=== PATIENT | female | born 1935 | race Caucasian/White ===

== ENCOUNTER 2022-08-13 21:10 | Inpatient (IN) | payer MEDICARE, MEDICAID ==
[2022-08-12] MEDS: MAGNESIUM SULFATE/D5W 100 ML IV SCH (23:30)
[~2022-08-13] VITALS: Ht 162.6 cm; Wt 63.5 kg
[2022-08-13] MEDS: MAGNESIUM SULFATE/D5W 100 ML IV SCH
[2022-08-13] MEDS ORDERED: ALBUTEROL SULFATE 2.5 MG/3 ML NEBU NEB ONE ×3 (21:30)
[2022-08-13] MEDS ORDERED: IPRATROPIUM BROMIDE 0.5 MG/2.5 ML NEBU NEB ONE ×3 (21:30)
[2022-08-13] MEDS ORDERED: methylPREDNISolone SOD SUCC 125 MG/2 ML VIAL IV ONE (21:30)
[2022-08-13] MEDS ORDERED: ALBUTEROL SULFATE 2.5 MG/3 ML NEBU ONE ×3 (21:34→22:26)
[2022-08-13] MEDS ORDERED: IPRATROPIUM BROMIDE 0.5 MG/2.5 ML NEBU ONE ×3 (21:34→22:26)
[2022-08-13] MEDS ORDERED: AZITHROMYCIN IV 500 MG in IV DEXTROSE 5% 250 ML IV ONE (21:45)
[2022-08-13] MEDS ORDERED: VANCOMYCIN 1G/D5W 200 ML PIGGYBACK IV ONE (21:45)
[2022-08-13] MEDS ORDERED: PIPERACILLIN SODIUM/TAZOBACTAM 3.375 G in IV DEXTROSE 5% 50 ML IV ONE (21:45)
[2022-08-13 22:08] LABS: HEMATOCRIT 38.9 % (31.2-41.9); MEAN CORPUSCULAR HEMOGLOBIN 32.3 uug (24.7-32.8); MEAN CORPUSCULAR VOLUME 99.1 fL (75.5-95.3); PLATELET COUNT (AUTO) 232 K/uL (179-408)
[2022-08-13 22:14] LABS: CARBON DIOXIDE 19 mmol/L (21-32); CHLORIDE 111 mmol/L (98-107); CREATININE 1.8 mg/dL (0.6-1.3); GLUCOSE 105 mg/dL (74-106); POTASSIUM 3.6 mmol/L (3.5-5.1); UREA NITROGEN, BLOOD 65 mg/dL (7-18)
[2022-08-13 22:22] LABS: ALANINE AMINOTRANSFERASE 15 U/L (14-59); ALKALINE PHOSPHATASE 167 U/L (50-136); ASPARTATE AMINOTRANSFERASE 21 U/L (15-37); BILIRUBIN,DIRECT 0.1 mg/dL (0.0-0.2); BILIRUBIN,TOTAL 0.2 mg/dL (0.2-1.0); TOTAL PROTEIN, SERUM 7.3 g/dL (6.4-8.2)
[2022-08-13 22:28] LABS: THYROID STIMULATING HORMONE 1.884 mIU/mL (0.358-3.740)
[2022-08-13] MEDS ORDERED: PIPERACILLIN/TAZOBACTAM/D5W 50 ML IV ONE (22:28)
[2022-08-13] MEDS ORDERED: VANCOMYCIN IV 200 ML ONE (22:29)
[2022-08-13] MEDS ORDERED: MAGNESIUM SULFATE/D5W 200 ML ONE (22:30)
[2022-08-13] MEDS ORDERED: AZITHROMYCIN 500MG/ D5W 250ML IVPB **ER PYXIS ONLY IV ONE (22:30)
--- NOTE | 2022-08-13 23:00 | NUR ---
After 3x breathing tx, Patient placed on HFNC. 40LPM 100% FIO2. Verbal order by ER MD.
[2022-08-13] MEDS ORDERED: methylPREDNISolone SOD SUCC 125 MG/2 ML VIAL ONE (23:56)
[2022-08-14] MEDS ORDERED: MULT-1045 PO (00:41)
[2022-08-14] MEDS ORDERED: MELA5TAB21 PO (00:41)
[2022-08-14] MEDS ORDERED: CLOP75TA33 PO (00:41)
[2022-08-14] MEDS ORDERED: VIT1CAPS9 PO (00:41)
[2022-08-14] MEDS ORDERED: CALC600T35 PO (00:41)
[2022-08-14] MEDS ORDERED: CRAN500T3 PO (00:41)
[2022-08-14] MEDS ORDERED: FOLI1TAB94 PO (00:41)
[2022-08-14] MEDS ORDERED: FERR236T3 PO (00:41)
[2022-08-14] MEDS ORDERED: MAGN64TA9 PO (00:41)
[2022-08-14] MEDS ORDERED: LEVO175T7 PO (00:41)
[2022-08-14] MEDS ORDERED: ONDANSETRON 4 MG/2 ML VIAL IV PRN (01:15)
[2022-08-14] MEDS ORDERED: ACETAMINOPHEN 325 MG TABLET PO PRN (01:15)
[2022-08-14] MEDS ORDERED: REMEDY ESSENTIAL ZINC PASTE 113 GM TP PRN (01:15)
[2022-08-14 02:34] LABS: ABG BASE EXCESS -8.4 mmol/L; ABG HCO3 14.9 mmol/L; ABG PCO2 25.2 mmHg (35.0-45.0); ABG PH 7.391 (7.350-7.450); ABG PO2 97.8 mmHg (75.0-100.0); ABG SITE LEFT RADIAL; COHb 1.3 % (0.5-1.5); MetHb 0.3 % (0.0-1.5); O2Hb 95.8 % (94.0-97.0); VENT MODE HF - Aquinox
--- NOTE | 2022-08-14 02:48 | NUR ---
Called Timmy Downs and read back ABG results. Was told to tell respiratory to lower Fi02 to 60%.
--- NOTE | 2022-08-14 05:50 | NUR ---
Called third floor and recieved room number 301-A for patient.
[2022-08-14] MEDS ORDERED: CEFEPIME HCL 1 G in IV DEXTROSE 5% 50 ML IV SCH (06:00)
[2022-08-14 06:04] LABS: ALANINE AMINOTRANSFERASE 13 U/L (14-59); ALKALINE PHOSPHATASE 160 U/L (50-136); ASPARTATE AMINOTRANSFERASE 19 U/L (15-37); BILIRUBIN,TOTAL 0.2 mg/dL (0.2-1.0); CARBON DIOXIDE 18 mmol/L (21-32); CHLORIDE 111 mmol/L (98-107); CREATININE 2.1 mg/dL (0.6-1.3); GLUCOSE 148 mg/dL (74-106); MAGNESIUM 3.2 mg/dL (1.8-2.4); PHOSPHOROUS 3.2 mg/dL (2.5-4.9); UREA NITROGEN, BLOOD 70 mg/dL (7-18)
[2022-08-14 06:15] LABS: HEMATOCRIT 35.4 % (31.2-41.9); MEAN CORPUSCULAR HEMOGLOBIN 32.8 uug (24.7-32.8); MEAN CORPUSCULAR VOLUME 98.7 fL (75.5-95.3); PLATELET COUNT (AUTO) 209 K/uL (179-408)
[2022-08-14] MEDS ORDERED: CEFEPIME HCL 1 G VIAL ONE (06:48)
[2022-08-14] MEDS: PANTOPRAZOLE SODIUM 40 MG TABLET.DR PO SCH (07:00)
--- NOTE | 2022-08-14 07:00 | NUR ---
Zachary plummer in ED - 08/14/22 at 0722 by TERRA Endorsed by RAYMOND dutta at this time
--- NOTE | 2022-08-14 07:12 | NUR ---
Gave report to Mychal ANDRADE.
--- NOTE | 2022-08-14 07:30 | NUR ---
Contacted Pt's daughter. Pt's daughter stated she has no known allergies. Safety measures in place. Will continue to monitor.
[2022-08-14] MEDS ORDERED: ALBUTEROL SULFATE 2.5 MG/3 ML NEBU ONE (08:51)
[2022-08-14] MEDS ORDERED: IPRATROPIUM BROMIDE 0.5 MG/2.5 ML NEBU ONE (08:51)
[2022-08-14] MEDS: HEPARIN SODIUM,PORCINE 5,000 UNITS/ML VIAL SQ SCH ×2 (09:00→20:31)
[2022-08-14] MEDS: methylPREDNISolone SOD SUCC 40 MG/ML VIAL IV SCH ×2 (09:00→17:15)
--- NOTE | 2022-08-14 09:00 | NUR ---
Dr. Hill informed me that Pt doesn't need to be on High Flow NC anymore. Informed me to put Pt on 6L NC. Safety measures in place. Will continue to monitor.
--- NOTE | 2022-08-14 09:42 | NUR ---
Contacted Dr. Garcia. stated to put the Pt in "telemetry" instead of NEFTALI. Safety measures in place. Will continue to monitor.
--- NOTE | 2022-08-14 10:16 | NUR ---
Gave Report to Hal. Safety measures in place. Will continue to monitor.
--- NOTE | 2022-08-14 11:15 | NUR ---
Pt admitted to 3rd Floor Rm 301A in stable condition. All belongings with Pt.
--- NOTE | 2022-08-14 11:15 | NUR ---
Received this admission from ER this 87 yo female with the diagnosis of Respiratory Failure; HCAP. Transferred to bed comfortably. Routine admission care rendered. Placed on Tele SR. O2 titrated to 5L/NC with O2 sat of 98%. Confused, agitated, uncooperative. Redirected. Bed alarm on.
[2022-08-14 11:29] VITALS: BP 93/57
[2022-08-14] MEDS ORDERED: GEMF600T PO (12:09)
[2022-08-14] MEDS ORDERED: CHOL400T32 PO (12:09)
--- NOTE | 2022-08-14 12:30 | NUR ---
Diet changed to puree, assisted with meal, able to eat 25% of food served
[2022-08-14] MEDS: IV D5W 1000ML 1,000 ML IV PRN (12:32)
[2022-08-14] MEDS: ALBUTEROL SULFATE 2.5 MG/3 ML NEBU NEB SCH ×2 (13:48→19:57)
[2022-08-14] MEDS: IPRATROPIUM BROMIDE 0.5 MG/2.5 ML NEBU NEB SCH ×2 (13:48→19:57)
[2022-08-14] MEDS ORDERED: VANCOMYCIN IV 500 MG in IV DEXTROSE 5% 100 ML IV ONE (14:00)
--- NOTE | 2022-08-14 15:11 | NUR ---
Incontinent, purewick external catheter applied
[2022-08-14 16:00] VITALS: BP 95/58
--- NOTE | 2022-08-14 17:58 | NUR ---
Assisted with puree meal with aspiration precaution. Eating fairly. O2 titrated to 4L/NC with O2 sat of 94-95%. Repositioned comfortably.
[2022-08-14] MEDS ORDERED: CHOL-35 PO (18:35)
[2022-08-14] MEDS ORDERED: FERR325T24 PO (18:35)
[2022-08-14] MEDS ORDERED: FOLI0.8C PO (18:35)
--- NOTE | 2022-08-14 19:57 | NUR ---
respiratory therapist at b/s giving patient breathing treatment , patient demented and doesn't follow commands seems anxious and afraid .
--- NOTE | 2022-08-14 20:00 | NUR ---
education patient and hold breathing treatment for her .
[2022-08-14] MEDS: CEFEPIME HCL 1 G in IV DEXTROSE 5% 50 ML IV SCH (20:21)
[2022-08-14] MEDS: FERROUS SULFATE 325 MG TABEC PO SCH (20:29)
[2022-08-14] MEDS: MELATONIN 3 MG TABLET PO SCH (20:29)
[2022-08-14 20:30] VITALS: BP 105/63
--- NOTE | 2022-08-14 20:30 | NUR ---
due medication crushed and given with applesauce patient took medication .
[2022-08-14] MEDS: MAGNESIUM CHLORIDE 64 MG TABLET.SA PO SCH (21:00)
[2022-08-15] MEDS: methylPREDNISolone SOD SUCC 40 MG/ML VIAL IV SCH ×3 (01:25→16:21)
[2022-08-15] MEDS: IPRATROPIUM BROMIDE 0.5 MG/2.5 ML NEBU NEB SCH ×4 (01:34→20:22)
[2022-08-15] MEDS: ALBUTEROL SULFATE 2.5 MG/3 ML NEBU NEB SCH ×4 (01:34→20:22)
--- NOTE | 2022-08-15 02:00 | NUR ---
sleeping in bed no respiratory distress tolerating 02 nasal cannula at4 L/min .
[2022-08-15] MEDS: IV D5W 1000ML 1,000 ML IV PRN ×2 (03:28→21:03)
[2022-08-15 04:50] VITALS: BP 118/50
--- NOTE | 2022-08-15 05:30 | NUR ---
incontinent of urine changed soiled linens and gown turned and reposition .
[2022-08-15 05:59] LABS: *BILIRUBIN,URIN NEGATIVE (NEGATIVE); *BLOOD, URINE NEGATIVE (NEGATIVE); *CLARITY,URINE CLEAR (CLEAR); *COLOR,URINE YELLOW (YELLOW); *KETONES,URINE NEGATIVE (NEGATIVE); *UROBILINOGEN,URINE 0.2 E.U./dl (NORMAL); LEUKOCYTE ESTERASE ,URINE NEGATIVE (NEGATIVE); NITRITE, URINE NEGATIVE (NEGATIVE); UGLUCOSE NEGATIVE (NEGATIVE)
[2022-08-15 06:00] LABS: BACTERIA,URINE FEW /HPF (NONE SEEN); RBC,URINE 0-3 /HPF (0-3); SQUAMOUS EPITHELIAL CELL,UR FEW /HPF (NONE SEEN); WBC,URINE 0-3 /HPF (0-3)
[2022-08-15 06:02] LABS: *CREATININE,URINE 106.7 mg/dL (30-125); *URINE TOTAL PROTEIN RANDOM 64.6 mg/dL (<150/24HR)
[2022-08-15] MEDS: CEFEPIME HCL 1 G in IV DEXTROSE 5% 50 ML IV SCH ×2 (06:14→18:00)
[2022-08-15] MEDS: PANTOPRAZOLE SODIUM 40 MG TABLET.DR PO SCH (06:14)
[2022-08-15] MEDS: LEVOTHYROXINE SODIUM 175 MCG TABLET PO SCH (06:14)
[2022-08-15] MEDS: GEMFIBROZIL 600 MG TABLET PO SCH ×2 (07:45→16:09)
[2022-08-15 07:53] LABS: HEMATOCRIT 34.2 % (31.2-41.9); MEAN CORPUSCULAR HEMOGLOBIN 32.4 uug (24.7-32.8); MEAN CORPUSCULAR VOLUME 99.2 fL (75.5-95.3); PLATELET COUNT (AUTO) 199 K/uL (179-408)
[2022-08-15 08:13] LABS: ALANINE AMINOTRANSFERASE 18 U/L (14-59); ALKALINE PHOSPHATASE 155 U/L (50-136); ASPARTATE AMINOTRANSFERASE 18 U/L (15-37); BILIRUBIN,TOTAL 0.2 mg/dL (0.2-1.0); CARBON DIOXIDE 20 mmol/L (21-32); CHLORIDE 109 mmol/L (98-107); CREATINE KINASE, TOTAL 41 U/L (26-192); CREATININE 1.8 mg/dL (0.6-1.3); GLUCOSE 143 mg/dL (74-106); MAGNESIUM 2.8 mg/dL (1.8-2.4); POTASSIUM 4.5 mmol/L (3.5-5.1); TOTAL PROTEIN, SERUM 6.9 g/dL (6.4-8.2); UREA NITROGEN, BLOOD 63 mg/dL (7-18)
[2022-08-15] MEDS: CALCIUM CARBONATE 600 MG TABLET PO SCH (08:19)
[2022-08-15] MEDS: CLOPIDOGREL 75 MG TABLET PO SCH (08:19)
[2022-08-15] MEDS: CHOLECALCIFEROL 1,000 UNIT TABLET PO SCH (08:19)
[2022-08-15] MEDS: HEPARIN SODIUM,PORCINE 5,000 UNITS/ML VIAL SQ SCH ×2 (08:20→20:38)
[2022-08-15] MEDS ORDERED: Medication Not On Formulary EA (Vit A/Vit C/Vit E/Zinc/Copper (Preservision Areds Softge PO SCH (09:00)
[2022-08-15 11:44] VITALS: BP 150/63
--- NOTE | 2022-08-15 12:15 | NUR ---
pt troponin is [address] antoine notified
[2022-08-15] MEDS: ASPIRIN 81 MG TAB.CHEW PO SCH (13:17)
[2022-08-15] MEDS ORDERED: VANCOMYCIN IV 500 MG in IV DEXTROSE 5% 100 ML IV ONE (14:00)
[2022-08-15 15:42] VITALS: BP 106/65
[2022-08-15 19:51] VITALS: BP 114/68
[2022-08-15] MEDS: MELATONIN 3 MG TABLET PO SCH (20:36)
[2022-08-15] MEDS: FERROUS SULFATE 325 MG TABEC PO SCH (20:36)
[2022-08-15] MEDS: MAGNESIUM CHLORIDE 64 MG TABLET.SA PO SCH (20:56)
--- NOTE | 2022-08-15 20:56 | NUR ---
mag level 2.8 ( h) slow mag not given ,meds not available also .
[2022-08-16] VITALS: BP 110/53
[2022-08-16] MEDS: IPRATROPIUM BROMIDE 0.5 MG/2.5 ML NEBU NEB SCH ×4 (00:35→20:24)
[2022-08-16] MEDS: ALBUTEROL SULFATE 2.5 MG/3 ML NEBU NEB SCH ×4 (00:35→20:24)
--- NOTE | 2022-08-16 00:38 | NUR ---
respiratory therapist at b/s gave patient breathing treatment .
--- NOTE | 2022-08-16 01:25 | NUR ---
incontinent of urine and stool changed soiled linens and gown ( w/ nursing unit coordinator help )patient fights and tries to scratch and kick RN and nursing unit coordinator explained to patient that she needs to be clean .
[2022-08-16] MEDS: methylPREDNISolone SOD SUCC 40 MG/ML VIAL IV SCH ×3 (01:56→20:18)
[2022-08-16 04:00] VITALS: BP 115/50
[2022-08-16] MEDS: LEVOTHYROXINE SODIUM 175 MCG TABLET PO SCH (06:08)
[2022-08-16] MEDS: PANTOPRAZOLE SODIUM 40 MG TABLET.DR PO SCH (06:08)
[2022-08-16] MEDS: CEFEPIME HCL 1 G in IV DEXTROSE 5% 50 ML IV SCH (06:08)
[2022-08-16 06:44] LABS: HEMATOCRIT 33.3 % (31.2-41.9); MEAN CORPUSCULAR HEMOGLOBIN 32.6 uug (24.7-32.8); MEAN CORPUSCULAR VOLUME 98.9 fL (75.5-95.3); PLATELET COUNT (AUTO) 172 K/uL (179-408)
--- NOTE | 2022-08-16 07:11 | NUR ---
received in bed awake call light with in reach vs are stable we will continue to monitors
[2022-08-16 07:25] LABS: CARBON DIOXIDE 18 mmol/L (21-32); CHLORIDE 105 mmol/L (98-107); CREATININE 1.8 mg/dL (0.6-1.3); GLUCOSE 119 mg/dL (74-106); MAGNESIUM 2.7 mg/dL (1.8-2.4); PHOSPHOROUS 3.8 mg/dL (2.5-4.9); POTASSIUM 4.7 mmol/L (3.5-5.1); UREA NITROGEN, BLOOD 62 mg/dL (7-18)
[2022-08-16] MEDS: ASPIRIN 81 MG TAB.CHEW PO SCH (08:05)
[2022-08-16] MEDS: CHOLECALCIFEROL 1,000 UNIT TABLET PO SCH (08:05)
[2022-08-16] MEDS: CLOPIDOGREL 75 MG TABLET PO SCH (08:05)
[2022-08-16] MEDS: HEPARIN SODIUM,PORCINE 5,000 UNITS/ML VIAL SQ SCH ×2 (08:05→20:49)
[2022-08-16] MEDS: GEMFIBROZIL 600 MG TABLET PO SCH ×2 (08:05→16:33)
[2022-08-16] MEDS: CALCIUM CARBONATE 600 MG TABLET PO SCH (08:05)
[2022-08-16] MEDS: BETA CAROTENE/VIT C & E/MIN TABLET PO SCH ×2 (08:52→16:33)
[2022-08-16] MEDS ORDERED: VANCOMYCIN IV 500 MG in IV DEXTROSE 5% 100 ML IV ONE (10:00)
--- NOTE | 2022-08-16 10:29 | NUR ---
sleeping in bed no respiratory distress on room air o2 sat 93% call light with in reach
[2022-08-16 12:00] VITALS: BP 130/65
[2022-08-16] MEDS ORDERED: FUROSEMIDE 20 MG/2 ML VIAL IV ONE (13:00)
[2022-08-16 15:54] LABS: *BILIRUBIN,URIN NEGATIVE (NEGATIVE); *CLARITY,URINE CLEAR (CLEAR); *COLOR,URINE YELLOW (YELLOW); *KETONES,URINE NEGATIVE (NEGATIVE); *UROBILINOGEN,URINE 0.2 E.U./dl (NORMAL); LEUKOCYTE ESTERASE ,URINE TRACE (NEGATIVE); NITRITE, URINE NEGATIVE (NEGATIVE); PH,URINE 5.5 (5.0-8.0); UGLUCOSE NEGATIVE (NEGATIVE)
[2022-08-16 16:00] VITALS: BP 155/71
[2022-08-16 16:02] LABS: *BLOOD, URINE TRACE (NEGATIVE)
[2022-08-16 16:06] LABS: A/G RATIO 0.6 (0.7-1.7); ALBUMIN 2.4 g/dL (2.9-4.4); ALPHA-1-GLOBULIN 0.3 g/dL (0.0-0.4); BETA GLOBULIN 1.1 g/dL (0.7-1.3); GAMMA GLOBULIN 1.8 g/dL (0.4-1.8); GLOBULIN, TOTAL 4.1 g/dL (2.2-3.9); M-SPIKE 0.8 g/dL (Not Observed)
[2022-08-16 16:17] LABS: BACTERIA,URINE FEW /HPF (NONE SEEN); SQUAMOUS EPITHELIAL CELL,UR FEW /HPF (NONE SEEN)
[2022-08-16] MEDS: CEFEPIME HCL 2 G in IV DEXTROSE 5% 100 ML IV SCH (17:25)
--- NOTE | 2022-08-16 18:05 | NUR ---
in bed awake watching tv daughter at bed side
[2022-08-16 20:00] VITALS: BP 148/68
[2022-08-16] MEDS: FERROUS SULFATE 325 MG TABEC PO SCH (20:49)
[2022-08-16] MEDS: MELATONIN 3 MG TABLET PO SCH (20:49)
[2022-08-16] MEDS ORDERED: MAGNESIUM CHLORIDE 64 MG TABLET.SA PO SCH (21:00)
[2022-08-17] MEDS: ALBUTEROL SULFATE 2.5 MG/3 ML NEBU NEB SCH ×4 (00:32→19:02)
[2022-08-17] MEDS: IPRATROPIUM BROMIDE 0.5 MG/2.5 ML NEBU NEB SCH ×4 (00:32→19:02)
[2022-08-17 04:12] VITALS: BP 131/74
[2022-08-17] MEDS: LEVOTHYROXINE SODIUM 175 MCG TABLET PO SCH (06:16)
[2022-08-17] MEDS: PANTOPRAZOLE SODIUM 40 MG TABLET.DR PO SCH (06:16)
[2022-08-17 06:20] LABS: HEMATOCRIT 33.6 % (31.2-41.9); MEAN CORPUSCULAR HEMOGLOBIN 32.3 uug (24.7-32.8); MEAN CORPUSCULAR VOLUME 96.9 fL (75.5-95.3); PLATELET COUNT (AUTO) 185 K/uL (179-408)
[2022-08-17 06:39] LABS: CARBON DIOXIDE 18 mmol/L (21-32); CHLORIDE 105 mmol/L (98-107); CREATININE 1.8 mg/dL (0.6-1.3); GLUCOSE 102 mg/dL (74-106); MAGNESIUM 2.4 mg/dL (1.8-2.4); PHOSPHOROUS 3.9 mg/dL (2.5-4.9); POTASSIUM 4.4 mmol/L (3.5-5.1); UREA NITROGEN, BLOOD 64 mg/dL (7-18)
[2022-08-17] MEDS: GEMFIBROZIL 600 MG TABLET PO SCH ×2 (07:48→16:28)
[2022-08-17] MEDS: methylPREDNISolone SOD SUCC 40 MG/ML VIAL IV SCH ×2 (08:08→20:18)
[2022-08-17] MEDS: CHOLECALCIFEROL 1,000 UNIT TABLET PO SCH (08:15)
[2022-08-17] MEDS: ASPIRIN 81 MG TAB.CHEW PO SCH (08:15)
[2022-08-17] MEDS: BETA CAROTENE/VIT C & E/MIN TABLET PO SCH ×2 (08:15→16:32)
[2022-08-17] MEDS: CLOPIDOGREL 75 MG TABLET PO SCH (08:15)
[2022-08-17] MEDS: CALCIUM CARBONATE 600 MG TABLET PO SCH (08:15)
[2022-08-17] MEDS: HEPARIN SODIUM,PORCINE 5,000 UNITS/ML VIAL SQ SCH ×2 (08:17→20:15)
[2022-08-17] MEDS: CYANOCOBALAMIN 1000 MCG/ML VIAL IM SCH (08:48)
[2022-08-17 11:46] VITALS: BP 129/85
--- NOTE | 2022-08-17 13:50 | NUR ---
pt troponin is [address] varner notified
[2022-08-17 15:47] VITALS: BP 131/78
[2022-08-17] MEDS: CEFEPIME HCL 2 G in IV DEXTROSE 5% 100 ML IV SCH (17:09)
[2022-08-17] MEDS: MELATONIN 3 MG TABLET PO SCH (20:14)
[2022-08-17] MEDS: FERROUS SULFATE 325 MG TABEC PO SCH (20:14)
[2022-08-17 20:56] VITALS: BP 120/78
--- NOTE | 2022-08-17 22:59 | NUR ---
sleeping in bed no respiratory distress call light with in reach
[2022-08-18] MEDS: ALBUTEROL SULFATE 2.5 MG/3 ML NEBU NEB SCH ×3 (00:54→14:07)
[2022-08-18] MEDS: IPRATROPIUM BROMIDE 0.5 MG/2.5 ML NEBU NEB SCH ×3 (00:54→14:07)
[2022-08-18 05:00] VITALS: BP 145/74
[2022-08-18] MEDS: PANTOPRAZOLE SODIUM 40 MG TABLET.DR PO SCH (06:01)
[2022-08-18] MEDS: LEVOTHYROXINE SODIUM 175 MCG TABLET PO SCH (06:01)
[2022-08-18 06:42] LABS: HEMATOCRIT 38.6 % (31.2-41.9); MEAN CORPUSCULAR HEMOGLOBIN 32.5 uug (24.7-32.8); MEAN CORPUSCULAR VOLUME 97.9 fL (75.5-95.3); PLATELET COUNT (AUTO) 221 K/uL (179-408)
[2022-08-18 07:25] LABS: CARBON DIOXIDE 21 mmol/L (21-32); CHLORIDE 106 mmol/L (98-107); CREATININE 1.7 mg/dL (0.6-1.3); GLUCOSE 97 mg/dL (74-106); MAGNESIUM 2.6 mg/dL (1.8-2.4); PHOSPHOROUS 3.2 mg/dL (2.5-4.9); POTASSIUM 4.3 mmol/L (3.5-5.1); UREA NITROGEN, BLOOD 62 mg/dL (7-18)
[2022-08-18] MEDS: GEMFIBROZIL 600 MG TABLET PO SCH ×2 (07:47→16:13)
[2022-08-18 08:00] VITALS: BP 136/72
--- NOTE | 2022-08-18 08:00 | NUR ---
Received patient lying in bed conscious and coherent. No SOB, no complaint. IV site at right hand g.22 and left forearm intact g.22. Observed accordingly. Attended
[2022-08-18] MEDS: CHOLECALCIFEROL 1,000 UNIT TABLET PO SCH (08:56)
[2022-08-18] MEDS: CYANOCOBALAMIN 1000 MCG/ML VIAL IM SCH (08:56)
[2022-08-18] MEDS: CLOPIDOGREL 75 MG TABLET PO SCH (08:56)
[2022-08-18] MEDS: BETA CAROTENE/VIT C & E/MIN TABLET PO SCH ×2 (08:56→16:13)
[2022-08-18] MEDS: CALCIUM CARBONATE 600 MG TABLET PO SCH (08:56)
[2022-08-18] MEDS: ASPIRIN 81 MG TAB.CHEW PO SCH (08:56)
[2022-08-18] MEDS: methylPREDNISolone SOD SUCC 40 MG/ML VIAL IV SCH (08:57)
[2022-08-18] MEDS: HEPARIN SODIUM,PORCINE 5,000 UNITS/ML VIAL SQ SCH (08:57)
--- NOTE | 2022-08-18 09:00 | NUR ---
Seen and examined by Dr. Bynum with order for discharge and carried out.
[2022-08-18] MEDS ORDERED: VANCOMYCIN IV 500 MG in IV DEXTROSE 5% 100 ML IV SCH (11:00)
[2022-08-18 11:43] VITALS: BP 130/69
[2022-08-18] MEDS ORDERED: PRED20TA PO (15:59)
[2022-08-18] MEDS ORDERED: ALBU2.5V7 NEB (15:59)
[2022-08-18] MEDS ORDERED: CYAN10006 IM (15:59)
[2022-08-18] MEDS ORDERED: PANT40TA49 PO (15:59)
[2022-08-18] MEDS ORDERED: IPRA0.2S6 NEB (15:59)
[2022-08-18] MEDS ORDERED: ASPI81TA31 PO (15:59)
[2022-08-18 16:43] VITALS: BP 110/79
--- NOTE | 2022-08-18 18:30 | NUR ---
Prepared all discharge summary, given and instructed to ambulance attendance. Per case investigator all forms fax to board and care. Removed IV cannula at right hand and left forearm clean and dry Vital signs stable at this time All informations and questions answered, AA verbalized understanding. Assisted using stretcher Discharge at 1850H
== END 2022-08-18 18:50 | disposition home health service (06) | DRG 177 ==
LOC: ER 21:10 → TRANSITION 08-14 06:44 → TELE3 08-14 10:51 → MEDSURG3 08-16 09:20
PROVIDERS: ADMIT Nurse Practitioner Family; ATTEND Internal Medicine
DX: J69.0 Pneumonitis due to inhalation of food and vomit (principal); G92.8 Other toxic encephalopathy; J96.01 Acute respiratory failure with hypoxia; I21.A1 Myocardial infarction type 2; N17.0 Acute kidney failure with tubular necrosis; D68.59 Other primary thrombophilia; J98.11 Atelectasis; E53.8 Deficiency of other specified B group vitamins; K58.9 Irritable bowel syndrome, unspecified; Z74.09 Other reduced mobility; H35.30 Unspecified macular degeneration; F01.50 Vascular dementia, unspecified severity, without behavioral disturbance, psychotic disturbance, mood disturbance, and anxiety; E78.5 Hyperlipidemia, unspecified; I10 Essential (primary) hypertension; E03.9 Hypothyroidism, unspecified; Z77.22 Contact with and (suspected) exposure to environmental tobacco smoke (acute) (chronic); H91.93 Unspecified hearing loss, bilateral; E66.9 Obesity, unspecified; E11.9 Type 2 diabetes mellitus without complications; I35.8 Other nonrheumatic aortic valve disorders; Z20.822 Contact with and (suspected) exposure to COVID-19; Z86.718 Personal history of other venous thrombosis and embolism; Z87.440 Personal history of urinary (tract) infections; Z86.73 Personal history of transient ischemic attack (TIA), and cerebral infarction without residual deficits; E46 Unspecified protein-calorie malnutrition; Z79.890 Hormone replacement therapy; Z90.710 Acquired absence of both cervix and uterus; Z90.49 Acquired absence of other specified parts of digestive tract; Z98.49 Cataract extraction status, unspecified eye
CPT/HCPCS: 36415; 36600; 70450; 71045; 76770; 83605; 83735; 83970; 84100; 84155; 84165; 84300; 84443; 84484; 85025; 85730; 86803; 87040; 87806; 93005; 93307; 94640; 94664; A4663; G0378; J0456; J0692; J1644; J1940; J2543; J2920; J2930; J3370; J3420; J3475; J3590; J7070